=== PATIENT | female | born 1990 | race Caucasian/White ===

== ENCOUNTER 2017-05-12 10:46 | Emergency (ER) | payer OTHER ==
[2017-05-12 12:25] VITALS: BP 141/86
--- NOTE | 2017-05-12 13:36 | UC ---
Throat Pain/Nasal Boyd HPI - HPI Summary HPI Summary: 26 y/o female presents to the urgent care c/o sore throat, dry cough and b/l ear fullness with postnasal drip for the past week. Pt reports her Sore throat is getting worse for the past 2 days. Pt with swallowing is 8/10. Pt denies fever, SOB, chest pain, abdominal pain, N/V/D. LMP: 05/10/2017. She has not taking anything to alleviate symptoms - History of Current Complaint Chief Complaint: UCRespiratory Stated Complaint: SORE THROAT Time Seen by Provider: 05/12/17 13:27 Hx Obtained From: Patient Hx Last Menstrual Period: 05/10/17 ?: No Onset/Duration: Gradual Onset, Lasting Weeks - 2 weeks, Still Present, Worse Since - 2 days Severity: Moderate Pain Intensity: 8 Pain Scale Used: 0-10 Numeric Cough: Nonproductive Associated Signs & Symptoms: Positive: Dysphagia, Nasal Discharge. Negative: Fever - Epiglottits Risk Factors Epiglottis Risk Factors: Negative - Allergies/Home Medications Allergies/Adverse Reactions: Allergies Allergy/AdvReac Type Severity Reaction Status Date / Time No Known Allergies Allergy Verified 05/12/17 12:19 Home Medications: Home Medications FLUoxetine CAP* [Prozac CAP*] 20 mg PO BID 05/12/17 [History Confirmed 05/12/17] Ranitidine HCl (Nf) [Zantac] 75 mg PO DAILY 05/12/17 [History Confirmed 05/12/17 ] PMH/Surg Hx/FS Hx/Imm Hx Previously Healthy: Yes - Pt denies PMHX - Surgical History Surgical History: None - Family History Known Family History: Positive: Hypertension - Social History Occupation: Employed Part-time Lives: With Family Alcohol Use: None Substance Use Type: None Smoking Status (MU): Never Smoked Tobacco Household Exposure Type: Cigarettes Review of Systems Constitutional: Negative Skin: Negative Eyes: Negative ENT: Sore Throat, Nasal Discharge Respiratory: Cough - dry Cardiovascular: Negative Gastrointestinal: Negative Genitourinary: Negative Motor: Negative Neurovascular: Negative Musculoskeletal: Negative Neurological: Negative Psychological: Negative Is Patient Immunocompromised?: No All Other Systems Reviewed And Are Negative: Yes Physical Exam Triage Information Reviewed: Yes Vital Signs: Initial Vital Signs Temp 98.1 F 05/12/17 12:12 Pulse 73 05/12/17 12:12 Resp 16 05/12/17 12:12 BP 141/86 05/12/17 12:12 Pulse Ox 100 05/12/17 12:12 - Additional Comments VITAL SIGNS: Reviewed. GENERAL: Patient is a well developed and nourished female who is sitting comfortable in the examining table. Patient is not in any acute respiratory distress. HEAD AND FACE: No signs of trauma. No ecchymosis, hematomas or skull depressions. No sinus tenderness. EYES: PERRLA, EOMI x 2, No injected conjunctiva, no nystagmus. No photophobia. EARS: Hearing grossly intact. Ear canals and tympanic membranes are within normal limits. MOUTH: Positive pharynx with erythema, no exudates, mild palatal petechiae. B/L tonsillar enlargement with no exudate. Uvula in midline. NECK: Supple, trachea is midline, Positive anterior cervical lymphadenopathy, no JVD, no carotid bruit, no c-spine tenderness, neck with full ROM. No meningeal signs, no Kernig's or brudzinskis signs. CHEST: Symmetric, no tenderness at palpation LUNGS: Clear to auscultation bilaterally. No wheezing or crackles. CVS: Regular rate and rhythm, S1 and S2 present, no murmurs or gallops appreciated. ABDOMEN: Soft, non-tender. No signs of distention. No rebound no guarding, and no masses palpated. Bowel sounds are normal. EXTREMITIES: FROM in all major joints, no edema, no cyanosis or clubbing. NEURO: Alert and oriented x 3. No acute neurological deficits. Speech is normal and follows commands. SKIN: Dry and warm Throat Pain/Nasal Course/Dx - Course Course Of Treatment: 26 y/o female presents to the urgent care c/o sore throat, dry cough and b/l ear fullness with postnasal drip for the past week. Pt reports her Sore throat is getting worse for the past 2 days. Pt with swallowing is 8/10. Pt denies fever, SOB, chest pain, abdominal pain, N/V/D. LMP : 05/10/2017. She has not taking anything to alleviate symptoms. Hx obtained. Rapid strep ordered, result: negative. Viral pharyngitis.Pt Rx ibuprofen PO to alleviates symptoms of pain and swelling. Advised on hand washing to avoid spreading. Pt advised to rest, eat well and avoid strenuous exercise. If symptoms do not improve or worsen advised to return to the urgent care or f/u with her PCP for further evaluation and treatment. Pt's BP is elevated, advised to decrease salt in diet and monitor BP. Pt understood and agreed with plan of care. - Differential Dx/Diagnosis Differential Diagnosis/HQI/PQRI: Influenza, Laryngitis, Mononucleosis, Otitis Media, Pharyngitis, Sinusitis, Tonsillitis, URI Provider Diagnoses: 1- viral pharyngitis. 2- Elevated BP w/o Hx of HTN Discharge - Discharge Plan Condition: Stable Disposition: HOME Prescriptions: Ibuprofen TAB* [Motrin TAB* 800 MG] 800 mg PO Q6H #20 tab Patient Education Materials: Pharyngitis (ED), Low Sodium Diet (ED) Referrals: Jose Padron MD [Primary Care Provider] - If Needed Additional Instructions: 1-Please take Ibuprofen PO q6-8hrs prn as instructed after meals to alleviate pain and swelling. Increase fluid intake, eat well, rest and avoid strenuous exercise 2-If symptoms do not improve or worsen please return to the urgent care or f/u with your PCP for further evaluation and treatment. 3-Your BP is elevated today please decrease salt in your diet, monitor BP, if it continues to be elevated please f/u with your PCP for further management
== END 2017-05-12 14:14 | disposition home or self-care (01) ==
LOC: UCCORT 10:46
DX: J02.9 Acute pharyngitis, unspecified (principal); R03.0 Elevated blood-pressure reading, without diagnosis of hypertension; Z77.22 Contact with and (suspected) exposure to environmental tobacco smoke (acute) (chronic)
CPT/HCPCS: 87651; 99212; G0463

== ENCOUNTER 2017-08-28 07:22 | Emergency (ER) | payer OTHER ==
[2017-08-28 07:37] VITALS: BP 126/83
--- NOTE | 2017-08-28 07:51 | UC ---
Throat Pain/Nasal Boyd HPI - HPI Summary HPI Summary: RIGHT EAR PLUGGED X 2 DAYS + NASAL CONGESTION, POST NASAL DRIP , COUGH NO EAR PAIN , NO FEVER, NO CHILLS - History of Current Complaint Chief Complaint: UCEar Stated Complaint: RIGHT EAR PAIN Time Seen by Provider: 08/28/17 07:38 Hx Obtained From: Patient Hx Last Menstrual Period: 07/31/17 Onset/Duration: Gradual Onset, Lasting Days - 2, Still Present Severity: Moderate Pain Intensity: 0 Pain Scale Used: 0-10 Numeric Cough: Nonproductive Associated Signs & Symptoms: Negative: Dysphagia, FB Sensation, Drooling, Hoarseness, Sinus Discomfort, Nasal Discharge, Fever, Vomiting, Rash - Allergies/Home Medications Allergies/Adverse Reactions: Allergies Allergy/AdvReac Type Severity Reaction Status Date / Time No Known Allergies Allergy Verified 08/28/17 07:31 Home Medications: Home Medications Ibuprofen TAB* [Motrin TAB* 800 MG] 800 mg PO Q6H PRN 08/28/17 [History Confirmed 08/28/17] diphenhydrAMINE HCl [Allergy Medication] 25 mg PO DAILY PRN 08/28/17 [History Confirmed 08/28/17] PMH/Surg Hx/FS Hx/Imm Hx Previously Healthy: Yes - Surgical History Surgical History: None - Family History Known Family History: Positive: Hypertension - Social History Alcohol Use: None Substance Use Type: None Smoking Status (MU): Never Smoked Tobacco Household Exposure Type: Cigarettes Review of Systems Constitutional: Negative Skin: Negative Eyes: Negative ENT: Nasal Discharge Respiratory: Cough Cardiovascular: Negative Gastrointestinal: Negative Is Patient Immunocompromised?: No All Other Systems Reviewed And Are Negative: Yes Physical Exam Triage Information Reviewed: Yes Appearance: Well-Appearing, No Pain Distress, Well-Nourished Vital Signs: Initial Vital Signs Temp 98.6 F 08/28/17 07:33 Pulse 71 08/28/17 07:33 Resp 16 08/28/17 07:33 BP 126/83 08/28/17 07:33 Pulse Ox 99 08/28/17 07:33 Vital Signs Reviewed: Yes Eye Exam: Normal Eyes: Positive: Conjunctiva Clear ENT Exam: Normal ENT: Positive: Normal ENT inspection, Hearing grossly normal, Pharynx normal, Nasal congestion, TM bulging - RIGHT EAR. Negative: TM dull, TM red Neck: Positive: Supple, Nontender, No Lymphadenopathy Respiratory: Positive: Chest non-tender, Lungs clear, Normal breath sounds, No respiratory distress Cardiovascular: Positive: RRR, No Murmur, Pulses Normal Skin Exam: Normal Throat Pain/Nasal Course/Dx - Differential Dx/Diagnosis Provider Diagnoses: URI Discharge - Discharge Plan Condition: Stable Disposition: HOME Patient Education Materials: Upper Respiratory Infection (ED) Referrals: Jose Padron MD [Primary Care Provider] - If Needed Additional Instructions: EUSTACHIAN TUBE DYSFUNCTION / PRESSURE BEHIND YOUR RIGHT EAR DRUM CONT. WITH INCREASE FLUID, USE FLONASE NASAL SPRAY DAILY FOLLOW UP NEEDED
== END 2017-08-28 07:48 | disposition home or self-care (01) ==
LOC: UCCORT 07:22
DX: J06.9 Acute upper respiratory infection, unspecified (principal); Z77.22 Contact with and (suspected) exposure to environmental tobacco smoke (acute) (chronic)
CPT/HCPCS: 99211; G0463